=== PATIENT | female | born 1950 | race Caucasian/White ===

== ENCOUNTER 2021-09-05 13:55 | Emergency (ER) | payer MEDICARE ==
[~2021-09-05] VITALS: Ht 157.5 cm; Wt 56.7 kg
--- NOTE | 2021-09-05 14:34 | NUR ---
patient presents to er with family with dizziness, anxiety. placed on cadiac monitor continuous pulse oximeter, EKG completed.
[2021-09-05] MEDS ORDERED: IV NORMAL SALINE 1000 ML BAG IV ONE (14:45)
--- NOTE | 2021-09-05 14:49 | NUR ---
urine/blood collected/sent.
[2021-09-05 14:56] LABS: *BILIRUBIN,URIN NEGATIVE (NEGATIVE); *BLOOD, URINE 2+ (NEGATIVE); *COLOR,URINE YELLOW (YELLOW); *KETONES,URINE NEGATIVE (NEGATIVE); *UROBILINOGEN,URINE 0.2 E.U./dl (NORMAL); HEMATOCRIT 40.4 % (31.2-41.9); LEUKOCYTE ESTERASE ,URINE 1+ (NEGATIVE); MEAN CORPUSCULAR HEMOGLOBIN 30.9 uug (24.7-32.8); NITRITE, URINE NEGATIVE (NEGATIVE); PH,URINE 5.5 (5.0-8.0); PLATELET COUNT (AUTO) 218 K/uL (179-408); UGLUCOSE NEGATIVE (NEGATIVE)
[2021-09-05 15:03] LABS: CREATININE 0.7 mg/dL (0.6-1.3); POTASSIUM 4.1 mmol/L (3.5-5.1)
[2021-09-05 15:16] LABS: *CLARITY,URINE HAZY (CLEAR)
[2021-09-05 15:17] LABS: BACTERIA,URINE FEW /HPF (NONE SEEN); BILIRUBIN,DIRECT 0.2 mg/dL (0.0-0.2); BILIRUBIN,TOTAL 0.6 mg/dL (0.2-1.0); SQUAMOUS EPITHELIAL CELL,UR MODERATE /HPF (NONE SEEN); TOTAL PROTEIN, SERUM 8.1 g/dL (6.4-8.2)
[2021-09-05] MEDS ORDERED: ATOR20TA PO (15:25)
[2021-09-05] MEDS ORDERED: QUET25TA PO (15:25)
[2021-09-05] MEDS ORDERED: DONE10TA44 PO (15:25)
[2021-09-05] MEDS ORDERED: MECL-225 PO (15:25)
--- NOTE | 2021-09-05 15:25 | NUR ---
pt daughter, Hali, called and gave the med list.
[2021-09-05] MEDS ORDERED: CEPH250C PO (16:19)
[2021-09-05] MEDS ORDERED: CEphaleXIN 250 MG CAPSULE ONE (16:29)
[2021-09-05] MEDS ORDERED: CEphaleXIN 250 MG CAPSULE PO ONE (16:30)
== END 2021-09-05 16:39 | disposition home or self-care (01) ==
LOC: ER 13:55
DX: R53.1 Weakness (principal); N39.0 Urinary tract infection, site not specified; R25.1 Tremor, unspecified; G30.9 Alzheimer's disease, unspecified; F02.80 Dementia in other diseases classified elsewhere, unspecified severity, without behavioral disturbance, psychotic disturbance, mood disturbance, and anxiety; H81.10 Benign paroxysmal vertigo, unspecified ear; I67.2 Cerebral atherosclerosis; Z79.899 Other long term (current) drug therapy
CPT/HCPCS: 36415; 70030-TC; 70450; 71045; 83605; 84443; 85025; 85730; 87040; 87086; 93005; A4663; J7030

== ENCOUNTER 2021-10-24 12:19 | Emergency (ER) | payer MEDICARE ==
[~2021-10-24] VITALS: Ht 152.4 cm; Wt 54.4 kg
[~2021-10-24 12:19] MED LIST: ATOR20TA PO; CEPH250C PO; DONE10TA44 PO; MECL-225 PO; QUET25TA PO
[2021-10-24] MEDS ORDERED: AMLO-212 PO (12:44)
[2021-10-24] MEDS ORDERED: CHOL1CRY2 MC (12:44)
[2021-10-24] MEDS ORDERED: IBUP-1953 PO (12:44)
[2021-10-24] MEDS ORDERED: LORA0.5T48 GT (12:55)
[2021-10-24] MEDS ORDERED: QUET25TA PO (12:57)
[2021-10-24] MEDS ORDERED: QUETIAPINE FUMARATE 25 MG TABLET PO ONE (13:00)
[2021-10-24] MEDS ORDERED: LORAZEPAM 0.5 MG TABLET PO ONE (13:00)
[2021-10-24] MEDS ORDERED: LORAZEPAM 0.5 MG TABLET ONE (13:10)
[2021-10-24] MEDS ORDERED: QUETIAPINE FUMARATE 25 MG TABLET ONE (13:11)
--- NOTE | 2021-10-24 13:24 | NUR ---
Gave pt RX and d/c instructions, pt and daughter verbalized understanding.
== END 2021-10-24 13:29 | disposition home or self-care (01) ==
LOC: ER 12:19
DX: G30.9 Alzheimer's disease, unspecified (principal); F02.80 Dementia in other diseases classified elsewhere, unspecified severity, without behavioral disturbance, psychotic disturbance, mood disturbance, and anxiety; R45.1 Restlessness and agitation; Z85.3 Personal history of malignant neoplasm of breast; K21.9 Gastro-esophageal reflux disease without esophagitis; G89.29 Other chronic pain; M54.9 Dorsalgia, unspecified; Z79.899 Other long term (current) drug therapy
CPT/HCPCS: A4663

== ENCOUNTER 2021-10-25 10:40 | Emergency (ER) | payer MEDICARE ==
[~2021-10-25] VITALS: Ht 157.5 cm; Wt 47.6 kg
[~2021-10-25 10:40] MED LIST changes: +AMLO-212 PO; +CHOL1CRY2 MC; +IBUP-1953 PO; +LORA0.5T48 GT
[2021-10-25 12:04] LABS: *BILIRUBIN,URIN NEGATIVE (NEGATIVE); *BLOOD, URINE NEGATIVE (NEGATIVE); *CLARITY,URINE CLEAR (CLEAR); *COLOR,URINE YELLOW (YELLOW); *KETONES,URINE NEGATIVE (NEGATIVE); *UROBILINOGEN,URINE 0.2 E.U./dl (NORMAL); LEUKOCYTE ESTERASE ,URINE 1+ (NEGATIVE); NITRITE, URINE NEGATIVE (NEGATIVE); PH,URINE 5.5 (5.0-8.0); UGLUCOSE NEGATIVE (NEGATIVE)
--- NOTE | 2021-10-25 12:42 | NUR ---
Gave pt RX and d/c instructions, pt verbalized understanding. W/C when results are posted : Ian or Ana or Farhat
[2021-10-25 13:35] LABS: RBC,URINE 0-3 /HPF (0-3)
[2021-10-25 13:36] LABS: BACTERIA,URINE FEW /HPF (NONE SEEN); SQUAMOUS EPITHELIAL CELL,UR FEW /HPF (NONE SEEN)
[2021-10-25 13:37] LABS: WBC,URINE 0-3 /HPF (0-3)
== END 2021-10-25 12:47 | disposition home or self-care (01) ==
LOC: ER 10:41
DX: Z00.00 Encounter for general adult medical examination without abnormal findings (principal); G30.9 Alzheimer's disease, unspecified; F02.80 Dementia in other diseases classified elsewhere, unspecified severity, without behavioral disturbance, psychotic disturbance, mood disturbance, and anxiety; I34.0 Nonrheumatic mitral (valve) insufficiency; K21.9 Gastro-esophageal reflux disease without esophagitis; Z85.3 Personal history of malignant neoplasm of breast
CPT/HCPCS: 87086; A4663

== ENCOUNTER 2022-08-07 13:18 | Emergency (ER) | payer MEDICARE, OTHER ==
[~2022-08-07] VITALS: Ht 152.4 cm; Wt 45.4 kg
[~2022-08-07 13:18] MED LIST changes: -CEPH250C PO
[2022-08-07] MEDS ORDERED: IV NORMAL SALINE 1000 ML BAG IV ONE (14:00)
--- NOTE | 2022-08-07 14:00 | NUR ---
pt roomed, is resting in bed comfortably. will continue to monitor.
[2022-08-07 14:47] LABS: HEMATOCRIT 36.2 % (31.2-41.9); MEAN CORPUSCULAR VOLUME 92.7 fL (75.5-95.3); PLATELET COUNT (AUTO) 185 K/uL (179-408)
[2022-08-07 14:51] LABS: CARBON DIOXIDE 28 mmol/L (21-32); CHLORIDE 103 mmol/L (98-107); CREATININE 0.8 mg/dL (0.6-1.3); GLUCOSE 93 mg/dL (74-106); POTASSIUM 4.1 mmol/L (3.5-5.1); UREA NITROGEN, BLOOD 14 mg/dL (7-18)
[2022-08-07 15:00] LABS: ALANINE AMINOTRANSFERASE 28 U/L (14-59); ALKALINE PHOSPHATASE 40 U/L (50-136); ASPARTATE AMINOTRANSFERASE 20 U/L (15-37); BILIRUBIN,DIRECT 0.1 mg/dL (0.0-0.2); BILIRUBIN,TOTAL 0.6 mg/dL (0.2-1.0); TOTAL PROTEIN, SERUM 7.5 g/dL (6.4-8.2)
--- NOTE | 2022-08-07 17:16 | NUR ---
IV d/c'd, pt tolerated, site secured with pressure dressing. Patient discharged to home in stable condition. Written and verbal after care instructions given. Patient verbalizes understanding of instructions. Stressed follow up or return to ER for worsening s/s.
== END 2022-08-07 17:18 | disposition home or self-care (01) ==
LOC: ER 13:18 → EDBD 13:18 → ER 17:18
DX: R42 Dizziness and giddiness (principal); I10 Essential (primary) hypertension; G30.9 Alzheimer's disease, unspecified; F02.80 Dementia in other diseases classified elsewhere, unspecified severity, without behavioral disturbance, psychotic disturbance, mood disturbance, and anxiety; I34.0 Nonrheumatic mitral (valve) insufficiency; Z85.3 Personal history of malignant neoplasm of breast; K21.9 Gastro-esophageal reflux disease without esophagitis; Z79.899 Other long term (current) drug therapy
CPT/HCPCS: 99285; 96360; 71045; 96361; 80076; 80048; 85025; 84484 ×2; 36415; 93005; J7040; A4663

== ENCOUNTER 2024-04-17 12:44 | Emergency (ER) | payer MEDICARE, OTHER ==
[~2024-04-17] VITALS: Ht 152.4 cm; Wt 52.2 kg
[~2024-04-17 12:44] MED LIST changes: +CEPH500T PO; +CHOL-35 PO; -CHOL1CRY2 MC; +FOLI1TAB94 PO; -IBUP-1953 PO; +LIDOCAINE 5% PATCH TD; -LORA0.5T48 GT; -MECL-225 PO; +MELO-105 PO; +TRAM50TA2 PO
[2024-04-17] MEDS ORDERED: DONE5TAB34 PO (13:28)
[2024-04-17] MEDS ORDERED: MELO-105 PO (13:28)
[2024-04-17] MEDS ORDERED: SENN8.6T19 PO (13:28)
[2024-04-17] MEDS ORDERED: POLY250017 PO (13:28)
[2024-04-17 16:57] VITALS: BP 110/61; TEMP 97.9; O2SAT 96
== END 2024-04-17 16:58 | disposition home or self-care (01) ==
LOC: ER 12:52
DX: S39.82XA Other specified injuries of lower back, initial encounter (principal); G30.9 Alzheimer's disease, unspecified; F02.80 Dementia in other diseases classified elsewhere, unspecified severity, without behavioral disturbance, psychotic disturbance, mood disturbance, and anxiety; Z79.899 Other long term (current) drug therapy; Z60.2 Problems related to living alone; W18.39XA Other fall on same level, initial encounter; Y93.89 Activity, other specified; Y92.89 Other specified places as the place of occurrence of the external cause; Y99.8 Other external cause status
CPT/HCPCS: 70450; 72125; A4606; A4663

== ENCOUNTER 2024-08-22 19:42 | Emergency (ER) | payer MEDICARE, OTHER ==
[~2024-08-22] VITALS: Ht 152.4 cm; Wt 52.2 kg
[~2024-08-22 19:42] MED LIST changes: -CEPH500T PO; -DONE10TA44 PO; +DONE5TAB34 PO; -LIDOCAINE 5% PATCH TD; +POLY250017 PO; +SENN8.6T19 PO; -TRAM50TA2 PO
[2024-08-22] MEDS ORDERED: QUET25TA PO (19:52)
[2024-08-22] MEDS ORDERED: ACET-2030 PO (19:52)
[2024-08-22] MEDS ORDERED: MELA5TAB20 PO (19:52)
[2024-08-22 23:04] VITALS: BP 142/76; O2SAT 99
[2024-08-23] MEDS ORDERED: CEFD300C3 PO (11:36)
== END 2024-08-22 23:05 ==
LOC: ER 19:50
DX: Z13.89 Encounter for screening for other disorder (principal); G30.9 Alzheimer's disease, unspecified; F02.82 Dementia in other diseases classified elsewhere, unspecified severity, with psychotic disturbance; I11.9 Hypertensive heart disease without heart failure; I34.0 Nonrheumatic mitral (valve) insufficiency; K21.9 Gastro-esophageal reflux disease without esophagitis; M81.0 Age-related osteoporosis without current pathological fracture; E78.5 Hyperlipidemia, unspecified; Z85.3 Personal history of malignant neoplasm of breast; Z79.899 Other long term (current) drug therapy; W18.39XA Other fall on same level, initial encounter; Y93.89 Activity, other specified; Y92.89 Other specified places as the place of occurrence of the external cause; Y99.8 Other external cause status
CPT/HCPCS: 70450; 71045; 72125; 72170; A4606; A4663; C1758

== ENCOUNTER 2024-08-23 09:24 | Emergency (ER) | payer MEDICARE, OTHER ==
[~2024-08-23] VITALS: Ht 152.4 cm; Wt 52.2 kg
[~2024-08-23 09:24] MED LIST changes: +ACET-2030 PO; +MELA5TAB20 PO
[2024-08-23 09:51] LABS: BASOPHILS % (AUTO) 0.3 % (0.0-2.0); EOSINOPHILS % (AUTO) 0.6 % (0.0-7.0); HEMATOCRIT 33.5 % (31.2-41.9); HEMOGLOBIN 11.3 g/dL (10.9-14.3); LYMPHOCYTES # (AUTO) 1.2 K/uL (0.8-4.8); LYMPHOCYTES % (AUTO) 29.8 % (20.5-51.5); MEAN CORPUSCULAR HEMOGLOBIN 31.1 uug (24.7-32.8); MEAN CORPUSCULAR HGB CONC 34 g/dL (32.3-35.6); MEAN CORPUSCULAR VOLUME 91.9 fL (75.5-95.3); MONOCYTES # (AUTO) 0.6 K/uL (0.1-1.30); MONOCYTES % (AUTO) 15.5 % (0.0-11.0); NEUTROPHILS # (AUTO) 2.2 K/uL (1.8-8.9); NEUTROPHILS % (AUTO) 53.8 % (38.5-71.5); PLATELET COUNT (AUTO) 189 K/uL (179-408); RED BLOOD CELL COUNT(AUTO) 3.64 MIL/uL (3.63-4.92); RED CELL DISTRIBUTION WIDTH 13.6 % (12.3-17.7); WHITE BLOOD COUNT (AUTO) 4.2 K/uL (3.8-11.8)
[2024-08-23 10:00] LABS: CALCIUM 8.8 mg/dL (8.5-10.1); CARBON DIOXIDE 30 mmol/L (21-32); CHLORIDE 103 mmol/L (98-107); CREATININE 0.6 mg/dL (0.6-1.3); GLUCOSE 96 mg/dL (74-106); SODIUM SERUM 139 mmol/L (136-145); UREA NITROGEN, BLOOD 15 mg/dL (7-18)
[2024-08-23 10:02] LABS: DIFFERENTIAL COMMENT 1
[2024-08-23 10:31] LABS: LYMPHOCYTES % (MANUAL) 30 % (20-40); NEUTROPHILS % (MANUAL) 58 % (42-75)
[2024-08-23 10:32] LABS: MONOCYTES % (MANUAL) 12 % (2-10); PLATELET ESTIMATE ADEQUATE
[2024-08-23 10:58] LABS: *BILIRUBIN,URIN NEGATIVE (NEGATIVE); *BLOOD, URINE NEGATIVE (NEGATIVE); *CLARITY,URINE CLEAR (CLEAR); *COLOR,URINE YELLOW (YELLOW); *KETONES,URINE NEGATIVE (NEGATIVE); *PROTEIN,URINE NEGATIVE (NEGATIVE); LEUKOCYTE ESTERASE ,URINE 1+ (NEGATIVE); NITRITE, URINE NEGATIVE (NEGATIVE); UGLUCOSE NEGATIVE (NEGATIVE)
[2024-08-23 11:06] LABS: BACTERIA,URINE FEW /HPF (NONE SEEN); SQUAMOUS EPITHELIAL CELL,UR FEW /HPF (NONE SEEN); WBC,URINE 20-50 /HPF (0-3)
[2024-08-23] MEDS ORDERED: CEFD300C3 PO (11:36)
[2024-08-23] MEDS ORDERED: CEFTRIAXONE 1 G VIAL ONE (11:42)
[2024-08-23] MEDS ORDERED: LIDOCAINE HCL 1% 20 ML VIAL ONE (11:42)
[2024-08-23] MEDS: CEFTRIAXONE 1 G VIAL IM ONE (11:55)
[2024-08-23 12:04] VITALS: BP 140/91; TEMP 97.5; O2SAT 97
== END 2024-08-23 13:12 ==
LOC: ER 09:24
DX: N39.0 Urinary tract infection, site not specified (principal); E78.5 Hyperlipidemia, unspecified; G30.9 Alzheimer's disease, unspecified; F02.80 Dementia in other diseases classified elsewhere, unspecified severity, without behavioral disturbance, psychotic disturbance, mood disturbance, and anxiety; Z79.899 Other long term (current) drug therapy; W01.0XXA Fall on same level from slipping, tripping and stumbling without subsequent striking against object, initial encounter; Y93.89 Activity, other specified; Y92.89 Other specified places as the place of occurrence of the external cause; Y99.8 Other external cause status
CPT/HCPCS: 99285; 80048; 81001; 85025; 36415; 72190; 51702; 93005; 96372; 85007; J0696; J3490; 70030-TC; A4606; A4663; C1758

== ENCOUNTER 2024-10-15 15:05 | Emergency (ER) | payer MEDICARE, OTHER ==
[~2024-10-15] VITALS: Ht 152.4 cm; Wt 52.2 kg
[~2024-10-15 15:05] MED LIST changes: +CEFD300C3 PO
[2024-10-15 15:09] VITALS: O2SAT 96
[2024-10-15] MEDS ORDERED: BISA-79 PO (17:38)
[2024-10-15] MEDS ORDERED: BISA10SU61 RC (17:38)
[2024-10-15] MEDS ORDERED: MAGNESIUM HYDROXIDE 30 ML LIQUID UDC ONE (17:46)
[2024-10-15] MEDS: MAGNESIUM HYDROXIDE 30 ML LIQUID UDC PO ONE (17:47)
== END 2024-10-15 22:12 ==
LOC: ER 15:05
DX: G30.9 Alzheimer's disease, unspecified (principal); F02.80 Dementia in other diseases classified elsewhere, unspecified severity, without behavioral disturbance, psychotic disturbance, mood disturbance, and anxiety; E78.5 Hyperlipidemia, unspecified; K59.00 Constipation, unspecified; M81.0 Age-related osteoporosis without current pathological fracture; W17.89XA Other fall from one level to another, initial encounter; Y93.89 Activity, other specified; Y92.89 Other specified places as the place of occurrence of the external cause; Y99.8 Other external cause status; Z79.899 Other long term (current) drug therapy
CPT/HCPCS: 74018; A4606; A4663